=== PATIENT | female | born 1985 ===

== ENCOUNTER 2020-07-30 02:47 | Emergency (ER) | payer MEDICAID ==
[~2020-07-30] VITALS: Ht 167.6 cm; Wt 85.9 kg
--- NOTE | 2020-07-30 03:46 | NUR ---
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
--- NOTE | 2020-07-30 03:53 | NUR ---
PT BROKE RIGHT WRIST AND HAD IT CAST YESTERDAY AT [facility] AT 0200. PT IS NOW COMPLAINING OF SHOOTING PAIN AND NUMBNESS TO FINGERS. FINGERS AR WARM AND CMS INTACT
[2020-07-30] MEDS ORDERED: KETOROLAC 30 MG/1 ML IM ONE (04:00)
--- NOTE | 2020-07-30 04:06 | NUR ---
WRIST SPLINT TAKEN DOWN
[2020-07-30] MEDS ORDERED: KETOROLAC 30 MG/1 ML ONE (04:08)
--- NOTE | 2020-07-30 04:10 | NUR ---
ICE PACK applied then medicated per emar for wrist pain at 11/07
--- NOTE | 2020-07-30 04:20 | NUR ---
XRAY AT BEDSIDE PAIN IMPROVED TO 3/10 NUMBNESS IMPROVED
--- NOTE | 2020-07-30 05:09 | NUR ---
BEDSIDE REPORT FROM ARSENIO RN, PT CARE TRANSFERRED AT THIS TIME. PT NAD, RESTING ON GURNEY, APPEARS COMFORTABLE, VSS, NO CHANGE IN CONDITION, WAITING FOR RAD READ. WCTM
[2020-07-30 06:18] VITALS: BP 116/72
--- NOTE | 2020-07-30 06:19 | NUR ---
Patient given discharge instructions and they have confirmed that they understand the instructions. Patient ambulatory with steady gait. NAD, DENIES ADDITIONAL NEEDS AT THIS TIME. QUESTIONS ANSWERED APPROPRIATELY.
== END 2020-07-30 06:23 | disposition home or self-care (01) ==
LOC: ED 05:42
DX: S52.501A Unspecified fracture of the lower end of right radius, initial encounter for closed fracture (principal); Y08.89XA Assault by other specified means, initial encounter; Y93.89 Activity, other specified; Y92.099 Unspecified place in other non-institutional residence as the place of occurrence of the external cause; Y99.8 Other external cause status
CPT/HCPCS: 29125; 73110; 96372; 99283; J1885